=== PATIENT | male | born 1960 | race Caucasian/White ===

== ENCOUNTER 2018-04-16 12:03 | Emergency (ER) | payer OTHER ==
[~2018-04-16 12:03] MED LIST: WELLBUTRIN SR200 MG PO
[2018-04-16] MEDS ORDERED: RITALIN10 M1 PO (12:13)
[2018-04-16] MEDS ORDERED: DEPAKOTE250 M1 PO (12:14)
[2018-04-16] MEDS ORDERED: CYCLOBENZAPRINE10 M1 PO (13:02)
[2018-04-16 13:20] VITALS: BP 159/90
== END 2018-04-16 13:21 | disposition home or self-care (01) ==
LOC: ED 12:03
DX: S39.012A Strain of muscle, fascia and tendon of lower back, initial encounter (principal); X50.1XXA Overexertion from prolonged static or awkward postures, initial encounter; Z79.899 Other long term (current) drug therapy

== ENCOUNTER → 2019-08-06 | Outpatient (CLI) | payer OTHER ==
[~2019-08-06] MED LIST changes: +CYCLOBENZAPRINE10 M1 PO; +DEPAKOTE250 M1 PO; +RITALIN10 M1 PO
== END ==
LOC: RAD 13:47
DX: M25.522 Pain in left elbow (principal); W19.XXXA Unspecified fall, initial encounter

== ENCOUNTER 2020-02-17 17:33 | Emergency (ER) | payer OTHER ==
[2020-02-17] MEDS ORDERED: CLARITIN 1010 MG/TAB PO (17:58)
[2020-02-17 18:12] LABS: HEMATOCRIT 45.9 % (42.0-52.0); HEMOGLOBIN 15.5 g/dL (13.5-18.0); MEAN CELL VOLUME 96 fl (78-100); MEAN CORPUSCULAR HEMOGLOBIN 33 pg (27-31); MEAN CORPUSCULAR HGB CONC 34 g/dL (33-37); MEAN PLATELET VOLUME 9.9 fl (7.4-10.4); PLATELET COUNT 237 K/mm3 (130-400); RED BLOOD COUNT 4.77 M/mm3 (4.20-5.60); RED CELL DISTRIBUTION WIDTH 13.6 % (11.5-14.5); WHITE BLOOD COUNT 8.6 K/mm3 (4.8-10.8)
[2020-02-17 18:24] LABS: ALBUMIN 3.6 g/dL (3.4-4.8); POTASSIUM 3.7 mmol/L (3.5-5.1); SODIUM 140 mmol/L (136-145)
[2020-02-17 18:25] LABS: CALCIUM 8.4 mg/dL (8.3-10.5); LYMPHOCYTE 9 % (20-51); MONOCYTE 14 % (3-10); NEUTROPHILS 75 % (42-75)
[2020-02-17 18:26] LABS: GLUCOSE 144 mg/dL (75-110); TOTAL PROTEIN 6.6 g/dL (6.2-8.1)
[2020-02-17 18:27] LABS: CARBON DIOXIDE 21 mmol/L (23-31)
[2020-02-17 18:28] LABS: PARTIAL THROMBOPLASTIN TIME 22.7 SECONDS (21.0-32.0); TOTAL BILIRUBIN 0.6 mg/dL (0.2-1.2)
[2020-02-17 18:30] LABS: D-DIMER 0.91 mg/L FEU (0.15-0.50)
[2020-02-17 18:32] LABS: AST-SGOT 24 U/L (5-34)
[2020-02-17 18:33] LABS: ALT/SGPT 62 U/L (0-55)
[2020-02-17 18:41] LABS: TROPONIN-I < 0.03 ng/mL (<0.030)
[2020-02-17 23:10] VITALS: BP 146/82
== END 2020-02-17 23:10 | disposition home or self-care (01) ==
LOC: ED 17:33
PROVIDERS: Nurse Practitioner Family
DX: K44.9 Diaphragmatic hernia without obstruction or gangrene (principal); N28.89 Other specified disorders of kidney and ureter; R06.02 Shortness of breath; R07.89 Other chest pain; F17.210 Nicotine dependence, cigarettes, uncomplicated; Z20.828 Contact with and (suspected) exposure to other viral communicable diseases
CPT/HCPCS: J7030; Q9967

== ENCOUNTER 2021-10-20 11:04 | Emergency (ER) | payer OTHER ==
[~2021-10-20 11:04] MED LIST changes: +CLARITIN 1010 MG/TAB PO
[2021-10-20 11:18] VITALS: BP 153/96
== END 2021-10-20 13:29 | disposition home or self-care (01) ==
LOC: ED 11:04
DX: M25.522 Pain in left elbow (principal)

== ENCOUNTER 2021-12-14 04:28 | Emergency (ER) | payer OTHER ==
[~2021-12-14] VITALS: Ht 175.3 cm; Wt 113.6 kg
[2021-12-14 04:42] VITALS: BP 144/88
[2021-12-14] MEDS ORDERED: RT ALBUTEROL CC18 GM IH (07:32)
[2021-12-14] MEDS ORDERED: PREDNISONE20 M1 PO (07:32)
== END 2021-12-14 07:40 | disposition home or self-care (01) ==
LOC: ED 04:28
DX: J45.901 Unspecified asthma with (acute) exacerbation (principal); Z87.891 Personal history of nicotine dependence; Z20.822 Contact with and (suspected) exposure to COVID-19
CPT/HCPCS: J2930

== ENCOUNTER 2022-02-27 08:24 | Emergency (ER) | payer OTHER ==
[~2022-02-27 08:24] MED LIST changes: +PREDNISONE20 M1 PO; +RT ALBUTEROL CC18 GM IH
[2022-02-27 08:32] VITALS: BP 160/98
== END 2022-02-27 09:54 | disposition home or self-care (01) ==
LOC: ED 08:24
DX: Z71.84 Encounter for health counseling related to travel (principal); Z20.822 Contact with and (suspected) exposure to COVID-19; Z28.310 Unvaccinated for COVID-19